=== PATIENT | female | born 1975 ===

== ENCOUNTER 2023-11-14 15:52 | Outpatient (REF) | payer SELFPAY ==
[2023-11-17 17:03] LABS: C. trachomatis RNA TMA NOT DETECTED (NOT DETECTED); Candida glabrata RNA NOT DETECTED (NOT DETECTED); Candida species RNA NOT DETECTED (NOT DETECTED); N. gonorrhoeae RNA TMA NOT DETECTED (NOT DETECTED); Trichomonas vaginalis RNA NOT DETECTED (NOT DETECTED)
[2023-11-19 23:18] LABS: HPV mRNA E6/E7 rflx Not Detected (Not Detected)
== END 2023-11-14 15:53 | disposition home or self-care (01) ==
LOC: HO.HHCL 15:52
PROVIDERS: Visit Provider Nurse Practitioner Family
DX: Z12.4 Encounter for screening for malignant neoplasm of cervix (principal)
CPT/HCPCS: 36415; 81513; 87481; 87491; 87591; 87624; 87661; 88142